=== PATIENT | female | born 1970 | race Caucasian/White ===

== ENCOUNTER 2017-04-13 08:28 | Outpatient (CLI) | payer MEDICAID ==
[2017-04-13 09:10] LABS: CHOL/HDL RATIO 4.1 (<4.4); CHOLESTEROL 210 mg/dL; HDL CHOLESTEROL 51 mg/dL; LDL/HDL RATIO 2.6 (<4.4); TRIGLYCERIDES 138 mg/dL; VLDL CHOLESTEROL 28 mg/dL
== END 2017-04-13 08:29 | disposition home or self-care (01) ==
LOC: LAB 08:28
PROVIDERS: ATTEND Family Medicine
DX: E78.2 Mixed hyperlipidemia (principal)
CPT/HCPCS: 36415; 80061

== ENCOUNTER 2017-04-20 09:03 | Outpatient (CLI) | payer MEDICAID ==
--- NOTE | 2017-04-21 17:54 | Mammography Report ---
DIGITAL SCREENING MAMMOGRAM: 04/20/2017 CLINICAL INDICATION: A 46-year-old for screening. COMPARISON: 10/2014, 08/2012, 04/2011, 04/2010. TECHNIQUE: Routine CC and MLO projections were obtained of the breasts. FINDINGS: Parenchymal tissue within both breasts is heterogeneously dense, which may lower the sensi tivity of mammography; however, there are no dominant masses, suspicious microcalcifications, or seco ndary signs of malignancy. In comparison to the previous studies, there are no significant changes. ASSESSMENT: NO MAMMOGRAPHIC EVIDENCE OF MALIGNANCY. NO SIGNIFICANT INTERVAL CHANGES. RECOMMENDATION: Screening mammography is recommended annually. BIRADS category 1 - negative. STANDARD QUALIFYING STATEMENTS 1. This examination was reviewed with the aid of Computed-Aided Detection (CAD). 2. A negative or benign imaging report should not delay biopsy if clinically suspicious findings are present. Consider surgical consultation if warranted. More than 5% of cancers are not identified b y imaging. 3. Dense breasts may obscure an underlying neoplasm. JOB #: [id number] EXT JOB #:[id number]
== END 2017-04-20 09:04 | disposition home or self-care (01) ==
LOC: DI 09:03
PROVIDERS: ATTEND Family Medicine
DX: Z12.31 Encounter for screening mammogram for malignant neoplasm of breast (principal)
CPT/HCPCS: 77067

== ENCOUNTER 2017-06-10 10:15 | Outpatient (CLI) | payer MEDICAID | END 2017-06-10 10:16 | disposition home or self-care (01) | LOC: SC 10:15 | PROVIDERS: ATTEND Nurse Practitioner Family | DX: G47.10 Hypersomnia, unspecified (principal); G47.8 Other sleep disorders; R06.83 Snoring; E66.9 Obesity, unspecified; Z68.37 Body mass index [BMI] 37.0-37.9, adult; G47.00 Insomnia, unspecified | CPT/HCPCS: 99205; 99212 ==

== ENCOUNTER 2017-11-19 19:41 | Outpatient (CLI) | payer MEDICAID | END 2017-11-19 19:42 | disposition home or self-care (01) | LOC: SC 19:41 | PROVIDERS: ATTEND Internal Medicine Pulmonary Disease | DX: G47.33 Obstructive sleep apnea (adult) (pediatric) (principal); G47.61 Periodic limb movement disorder | CPT/HCPCS: 95810 ==

== ENCOUNTER 2017-12-31 10:15 | Outpatient (CLI) | payer MEDICAID | END 2017-12-31 10:16 | disposition home or self-care (01) | LOC: SC 10:15 | PROVIDERS: ATTEND Nurse Practitioner Family | DX: G47.33 Obstructive sleep apnea (adult) (pediatric) (principal); G47.61 Periodic limb movement disorder | CPT/HCPCS: 99212; 99214 ==

== ENCOUNTER 2018-07-26 08:55 | Outpatient (CLI) | payer MEDICAID | END 2018-07-26 08:56 | disposition home or self-care (01) | LOC: SC 08:55 | PROVIDERS: ATTEND Nurse Practitioner Family | DX: G47.33 Obstructive sleep apnea (adult) (pediatric) (principal); G47.00 Insomnia, unspecified | CPT/HCPCS: 99212; 99214 ==

== ENCOUNTER 2018-08-30 08:59 | Outpatient (CLI) | payer MEDICAID | END 2018-08-30 09:00 | disposition home or self-care (01) | LOC: SC 08:59 | PROVIDERS: ATTEND Nurse Practitioner Family | DX: G47.33 Obstructive sleep apnea (adult) (pediatric) (principal); G47.00 Insomnia, unspecified | CPT/HCPCS: 99212; 99214 ==

== ENCOUNTER 2018-10-11 08:42 | Outpatient (CLI) | payer MEDICAID | END 2018-10-11 08:43 | disposition home or self-care (01) | LOC: SC 08:42 | PROVIDERS: ATTEND Nurse Practitioner Family | DX: G47.33 Obstructive sleep apnea (adult) (pediatric) (principal) | CPT/HCPCS: 99212; 99214 ==

== ENCOUNTER 2019-01-11 08:17 | Outpatient (CLI) | payer MEDICAID ==
[2019-01-11 09:40] VITALS: BP 110/80
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
== END 2019-01-11 08:18 | disposition home or self-care (01) ==
LOC: SC 08:17
PROVIDERS: ATTEND Nurse Practitioner Family
DX: G47.33 Obstructive sleep apnea (adult) (pediatric) (principal)
CPT/HCPCS: 99212; 99214

== ENCOUNTER 2019-10-20 10:43 | Outpatient (CLI) | payer MEDICAID ==
--- NOTE | 2019-10-20 09:32 | SLEEP CARE CONSULTATION ---
Information from patient questionnaire entered by Elle Singh. I have reviewed and concur with the information entered by Elle Singh. This document represents the service I personally performed and the decisions made by me, Oralia Buenrostro, RN, MSN, DISTRICT WIRE CHIEF. History of Present Illness Service Date and Time: 10/20/2019 0900 Previous diagnosis: Mild, Obstructive Sleep Apnea-Hypopnea Syndrome AHI: 11.1 (in 2018) Reason for follow up: other (9 month) Equipment type: CPAP Equipment obtained from: [facility] (getting supplies as needed) Mask style: Full face Mask brand: Resmed (Air Touch) Backup mask available: Yes (old mask ) Last cushion change: the for all equipment Prior sleep studies: Yes Year and Where: 2017 Sleep Type of Sleep Study: Polysomnography CPAP Compliance Data - Data Reviewed with Patient Average duration of nightly device use: 4 Compliance rate %: 30 (last 30)(22.2 for 180 days) Current pressure setting (cmH2O): 6-10 Humidity settin Heated hose settin Average residual AHI: 3.1 Average large leak: 2 min Subjective Missed days of use due to: reports: other (feeling of anxiety with use of mask after cervical fusion - discussed with surgeon and normal response - likes current mask ) Patient concerns: reports: mask discomfort (from anxiety as described above), mask leak noise (when sleep restless from pain and will then give up and take off mask ), other (wears a retainer for past 2 months with residual drool. ). denies: aerophagia, air blowing in eyes, condensation in mask/hose, nasal congestion, dry mouth, nose, throat, epistaxis Observed to snore while using device: No (single / sleeps alone) Current pressure setting perceived as: comfortable On therapy, patient: reports: being more awake and alert during the day, more rested overall (when able to use longer and more energy for exercise ). denies: sleeping better (reports insomnia - described as difficulty to return to sleep after awakened due to pain. She then turns on IPAD and watches. ), drowsiness while driving Initial [place] Sleepiness Scale score: 13 (in 2008)(14 in 2018) Allergies and Home Medications Home medication list reviewed: No (tapering off pain medications only every 18 hours and muscle relaxant prn ) Review of Systems Review of systems same as previous: No (cervical fusion 02/10 / lumbar fusion May 2019) Physical Exam Height: 5 ft 8 in Weight: 235 lb (home weight) Weight change since last visit: ? lost 10 pounds Body Mass Index: 35.7 BMI Classification: Obese Impression and Plan 1. Obstructive Sleep Apnea-Hypopnea Syndrome, mild, with poor treatment compliance and good apnea control. On CPAP therapy, the patient has better sleep quality and is more rested overall when able to use for longer periods of time. Her compliance fell due to anxiety with using mask after her cervical fusion. She has been more successful with nightly CPAP use the past week. To reduce skin irritation from drooling from use of retainer, she is advised to check out skin protective ointments / lotions that can be used with her mask. She has checked with [facility] and cloth barrier information given. So I advised to use both the barrier and skin protective ointment to allow healing of skin. To improve mask fit when restless sleep from pain, she is advised to try a hose yang as described to be found online. Patient counseled of risks of respiratory depression with use of her opioids and muscle relaxant and to use CPAP with all sleep. I also counseled her on risks of combining opioids and muscle relaxant of which she states aware. She is in process of tapering her medications wit her doctor. Patient's apnea severity and rationale for treatment to reduce apnea, improve sleep quality and reduce cardiovascular and cerebrovascular events was reviewed. 2. Insomnia , due to difficulty returning to sleep when awakened by pain. Her current practice of watching movies will only alert her more by effect of light into eyes and melatonin level as well as the activity itself so instead she is advised to leave bedroom and engage in quiet quiet activity such as reading until sleepy enough to return to bed. This is to be repeated as often as necessary so bed associated with sleep. A 2 week diary will be sent to complete to assist application and futher evaluation. * Continue auto CPAP pressure at 6-10 cmH2O * Implement methods to reduce skin irritation * Implement methods to reduce insomnia * complete 2 week sleep diary * Notify me if snoring with mask or feeling that the pressure is too much or too little * Attempt to lose weight * Call this office if any problems using CPAP * Return for follow up in 2 months , or sooner if concerns arise Visit Type: Telehealth Video (to reduce Covid 19 exposure risk) Video Type: Airware Patient Location: Home Location of Provider: Home Patient agrees and consents to this telehealth visit type: Yes Patient agrees to have their insurance billed: Yes Time Spent with Patient (minutes): 29 Provider Statement: I spent 100% of the Telehealth Video Call with the patient with greater than 50% spent counseling the patient and coordination of care.
== END 2019-10-20 10:44 | disposition home or self-care (01) ==
LOC: SC 10:43
PROVIDERS: ATTEND Nurse Practitioner Family
DX: G47.33 Obstructive sleep apnea (adult) (pediatric) (principal); G47.00 Insomnia, unspecified; E66.9 Obesity, unspecified; Z68.35 Body mass index [BMI] 35.0-35.9, adult

== ENCOUNTER 2019-11-09 15:06 | Outpatient (CLI) | payer MEDICAID ==
[2019-11-09 15:30] LABS: BASOPHILS # (AUTO) 0.1 10^3/uL (0.0-0.1); BASOPHILS % (AUTO) 0.8 %; EOSINOPHILS # (AUTO) 0.3 10^3/uL (0.0-0.7); EOSINOPHILS % (AUTO) 3.7 %; HGB - HEMOGLOBIN 13.5 g/dL (12.0-16.0); LYMPHOCYTES % (AUTO) 27.5 %; MEAN CORPUSCULAR HEMOGLOBIN 28.4 pg (27.0-31.0); MEAN CORPUSCULAR HGB CONC 32.6 g/dL (32.0-36.0); MONOCYTES # (AUTO) 0.4 10^3/uL (0.0-1.0); MONOCYTES % (AUTO) 4.8 %; NEUTROPHILS # (AUTO) 4.6 10^3/uL (1.5-6.6); NEUTROPHILS % (AUTO) 63.1 %; RED BLOOD COUNT 4.76 10^6/uL (4.20-5.40); RED CELL DISTRIBUTION WIDTH 13.7 % (12.0-15.0); WHITE BLOOD COUNT 7.3 x10^3/uL (4.8-10.8)
[2019-11-09 15:47] LABS: ALBUMIN 4.1 g/dL (3.2-5.5); ALBUMIN/GLOBULIN RATIO 1.3 (1.0-2.2); ALKALINE PHOSPHATASE 55 IU/L (42-121); ALT ALANINE AMINOTRANSFERASE 15 IU/L (10-60); AST ASPARTATE AMINOTRANSFERASE 18 IU/L (10-42); BILIRUBIN,TOTAL 0.3 mg/dL (0.2-1.0); BUN - BLOOD UREA NITROGEN 14 mg/dL (6-20); CALCIUM 9.6 mg/dL (8.5-10.3); CARBON DIOXIDE - CO2 23 mmol/L (21-32); CHLORIDE 104 mmol/L (101-111); CHOL/HDL RATIO 3.5 (<4.4); CHOLESTEROL 207 mg/dL; CREATININE 0.8 mg/dL (0.4-1.0); GLUCOSE 112 mg/dL (70-100); HDL CHOLESTEROL 59 mg/dL; LDL CHOLESTEROL,CALCULATED 120 mg/dL; SODIUM 135 mmol/L (135-145); TOTAL PROTEIN 7.2 g/dL (6.7-8.2); VLDL CHOLESTEROL 28 mg/dL
[2019-11-09 15:59] LABS: THYROID STIMULATING HORMONE 0.51 uIU/mL (0.34-5.60)
[2019-11-09 16:00] LABS: FREE T3 2.68 pg/mL (2.5-3.9)
[2019-11-09 16:13] LABS: PLATELET ESTIMATE, MANUAL NORMAL (130-450,000) (NORMAL); PLATELET MORPHOLOGY PLATELET CLUMPING (NORMAL); RBC MORPHOLOGY (MULTIPLE) NORMAL APPEARANCE (NORMAL)
== END 2019-11-09 15:07 | disposition home or self-care (01) ==
LOC: LAB 15:06
PROVIDERS: ATTEND Family Medicine
DX: E07.9 Disorder of thyroid, unspecified (principal); Z13.220 Encounter for screening for lipoid disorders; Z13.228 Encounter for screening for other metabolic disorders; R53.83 Other fatigue; E78.2 Mixed hyperlipidemia
CPT/HCPCS: 36415; 80053; 80061; 82306; 83721; 84439; 84443; 84481; 85025

== ENCOUNTER 2020-06-13 13:11 | Outpatient (CLI) | payer MEDICAID ==
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
== END 2020-06-13 13:12 | disposition home or self-care (01) ==
LOC: SC 13:11
PROVIDERS: ATTEND Nurse Practitioner Family
DX: G47.33 Obstructive sleep apnea (adult) (pediatric) (principal); E66.9 Obesity, unspecified; Z68.35 Body mass index [BMI] 35.0-35.9, adult

== ENCOUNTER 2020-08-13 14:59 | Outpatient (CLI) | payer MEDICAID ==
--- NOTE | 2020-08-14 09:27 | Mammography Report ---
BILATERAL DIGITAL SCREENING MAMMOGRAM 3D/2D: 08/13/2020 CLINICAL: Routine screening. Comparison is made to exams dated: 04/20/2017 mammogram, 11/02/2014 mammogram, 08/31/2012 mammogram, mammogram, and 05/10/2010 mammogram - [facility]. There are scattered fib roglandular elements in both breasts. No significant masses, calcifications, or other findings are seen in either breast. There has been no significant interval change. IMPRESSION: NEGATIVE There is no mammographic evidence of malignancy. A 1 year screening mammogram is recommended. This exam was interpreted at Station ID: [id number]. NOTE: For mammograms, a report in lay terms will be sent to the patient. Approximately 15% of breast malignancies will not be visualized mammographically. In the management of a palpable breast mass, a negative mammogram must not discourage biopsy of a clinically suspicious lesion. Electronically Signed By: Darrel Condon acr/penrad:08/13/2020 17:34:18 ACR BI-RADS Category 1: Negative 3341F PARENCHYMAL PATTERN: (A) - The breast(s) demonstrate(s) scattered fibroglandular densities. BI-RADS CATEGORY: (1) - 1 RECOMMENDATION: (ANNUAL) - Recommend routine annual screening mammography. [id number] 1 year screening LATERALITY: (B)
== END 2020-08-13 15:00 | disposition home or self-care (01) ==
LOC: DI.N 14:59
DX: Z12.31 Encounter for screening mammogram for malignant neoplasm of breast (principal)

== ENCOUNTER 2020-08-22 08:54 | Outpatient (CLI) | payer MEDICAID ==
--- NOTE | 2020-08-22 09:12 | SLEEP CARE CONSULTATION ---
Information from patient questionnaire entered by Elle Singh. I have reviewed and concur with the information entered by Elle Singh. This document represents the service I personally performed and the decisions made by , Yanci Hernández ARNP. History of Present Illness Service Date and Time: 08/22/2020 0854 Previous diagnosis: Mild, Obstructive Sleep Apnea-Hypopnea Syndrome AHI: 11.1 (in 2018) Reason for follow up: other (2 month) Equipment type: CPAP Equipment obtained from: [facility] (getting supplies as needed) Mask style: Full face Backup mask available: No (keep old mask as backup when replaced) Last cushion change: 1 month Prior sleep studies: Yes Year and Where: 2018 - [facility] Type of Sleep Study: Polysomnography HPI additional information: ZANDRA ERNANDEZ was diagnosed to have mild, AHI 11.1, obstructive sleep apnea- hypopnea syndrome and returned today for CPAP therapy two month follow-up. CPAP Compliance Data - Data Reviewed with Patient Average duration of nightly device use: 5 hr 30 min Compliance rate %: 81.7 (60 days) Current pressure setting (cmH2O): 6-10 Humidity settin Heated hose settin Average residual AHI: 2.9 Average large leak: 36 sec Subjective Patient concerns: denies: aerophagia, mask discomfort, air blowing in eyes, mask leak noise, condensation in mask/hose, nasal congestion, dry mouth, nose, throat, epistaxis, other Observed to snore while using device: No Current pressure setting perceived as: comfortable On therapy, patient: reports: sleeping better, awakening more refreshed, being more awake and alert during the day, more rested overall. denies: drowsiness while driving Initial [place] Sleepiness Scale score: 14 (in 2018) Current [place] Sleepiness Scale score: 2 Allergies and Home Medications Home medication list reviewed: Yes (no changes) Review of Systems Review of systems same as previous: Yes (no changes) Physical Exam Heart Rate: 95 O2 Saturation: 95 Height: 5 ft 8 in Weight: 237 lb Body Mass Index: 36.0 BMI Classification: Obese Impression and Plan 1. Obstructive Sleep Apnea-Hypopnea Syndrome, mild, with good treatment compliance and good apnea control. On CPAP therapy, the patient has better sleep quality and is more rested overall. She has been able to bring up her compliance and is using her machine more consistently with significant improvement of her apneas. I will have her follow up in a year. She was encouraged to come in sooner with any issues. She was encouraged to lose weight to improve her health. Patient's apnea severity and rationale for treatment to reduce apnea, improve sleep quality and reduce cardiovascular and cerebrovascular events was reviewed. I also reviewed the benefit of consistent device use of CPAP for dep ression/anxiety. * Continue autoCPAP pressure at 6-10 cmH2O * Notify me if snoring with mask or feeling that the pressure is too much or too little * Attempt to lose weight * Call this office if any problems using CPAP * Return for follow up in 1 year, or sooner if concerns arise Counseling Topics: Spare mask, Weight loss health impact Visit Type: In Office Time Spent with Patient (minutes): 14 Provider Statement: I spent 100% of the Face to Face Visit with the patient with greater than 50% spent counseling the patient and coordination of care.
--- OUTSIDE RECORDS SUMMARY | 2020-08-28 23:28 | EXTERNAL MEDICAL SUMMARY RPT | Continuity of Care Document ---
:1970 Demographics Phone Unavailable Preferred Language Turkish Marital Status Unknown Amish Affiliation Unknown Race Unknown Ethnic Group Unknown Author Organization [facility] Address [address] [phone] Phone Care Team Providers Name Role Phone Horras Unavailable Unavailable Horras Unavailable Unavailable Problems date description facility [id number] Chronic pain syndrome [facility] 20200712 Disorder of thyroid, unspecified [facility] [id number] Pain in right finger[facility]s) [facility] Medications date description facility 20200530 cetirizine hydrochloride 10 MG Oral Tab let [facility] 20200530 Oxycodone Hydrochloride 5 MG Oral Table t [facility] 20200530 Acyclovir 200 MG Oral [facility] 20200530 Methocarbamol [address] [facility] 20200530 Ethinyl Estradiol 0.035 MG / Norethindr one 1 MG Oral [facility] Tablet 20200530 Amphetamine aspartate 5 MG / Amphetamin e Sulfate 5 MG / [facility] Dextroamphetamine saccharate 5 MG / Dext roamphetamine Sulfate 5 MG Oral Tablet 20200530 12 HR Bupropion Hydrochloride 150 MG Ex tended Release [facility] Tablet [id number] Amphetamine aspartate 5 MG / Amphetamin e Sulfate 5 MG / [facility] Dextroamphetamine saccharate 5 MG / Dext roamphetamine Sulfate 5 MG Oral Tablet Procedures date description facility [id number] [facility] date description facility 20200530 [facility] date description facility 20200530 [facility] date description facility [id number] [facility] date description facility [id number] [facility] date description facility [id number] [facility] Vital Signs date measurement value source 20200530 BMI 33.7 kg/m2 20200530 BP_diastolic 72 mm[Hg] [id number] BP_systolic 138 mm[Hg] 20200530 heart_rate 87 /min 20200530 height_metric 177.8 cm 20200530 height_standard 70 in 20200530 respiration_rate 16 /min 20200530 temperature_metric 36.33 C 20200530 temperature_standard 97.4 F 20200530 weight_metric 48.45 kg 20200530 weight_standard 106.82 lb date measurement value source 20200712 BMI 33.4 kg/m2 20200712 BP_diastolic 68 mm[Hg] [id number] BP_systolic 130 mm[Hg] 20200712 heart_rate 100 /min 20200712 height_metric 177.8 cm 20200712 height_standard 70 in 20200712 respiration_rate 16 /min 20200712 temperature_metric 36.78 C 20200712 temperature_standard 98.2 F 20200712 weight_metric 47.94 kg 20200712 weight_standard 105.69 lb Social History date description facility [id number]
== END 2020-08-22 08:55 | disposition home or self-care (01) ==
LOC: SC 08:54
PROVIDERS: ATTEND Nurse Practitioner Family
DX: G47.33 Obstructive sleep apnea (adult) (pediatric) (principal); E66.9 Obesity, unspecified; Z68.36 Body mass index [BMI] 36.0-36.9, adult
CPT/HCPCS: 99212

== ENCOUNTER 2021-08-06 09:18 | Outpatient (CLI) | payer MEDICAID ==
[2021-08-06 09:53] VITALS: BP 128/78
--- NOTE | 2021-08-06 09:53 | SLEEP CARE CONSULTATION ---
Information from patient questionnaire entered by Miesha Cruz MA. I have reviewed and concur with the information entered by Miesha Cruz MA. This document represents the service I personally performed and the decisions made by , Yanci Hernández ARNP. History of Present Illness Service Date and Time: 08/06/2021 0918 Previous diagnosis: Mild, Obstructive Sleep Apnea-Hypopnea Syndrome AHI: 11.1 (in 2018) Reason for follow up: annual, other (LAST SEEN 07/2020, TRANSFER DME, RECALL MACHINE,) Equipment type: CPAP Equipment obtained from: Other ([facility]) Mask style: Full face Backup mask available: Yes (old mask) Last cushion change: 1 month Prior sleep studies: Yes Year and Where: 2017 - [facility] Type of Sleep Study: Polysomnography HPI additional information: ZANDRA ERNANDEZ was diagnosed to have mild, AHI 11.1, obstructive sleep apnea- hypopnea syndrome and returned today for CPAP therapy annual follow-up. Sleep Study - Results Type of Sleep Study: Polysomnography Prior sleep studies: Yes Year and Where: 2018 - [facility] CPAP Compliance Data - Data Reviewed with Patient Average duration of nightly device use: 5 HOURS 33 MINUTES Compliance rate %: 42.2 Current pressure setting (cmH2O): 6-10 Humidity settin Heated hose settin Average residual AHI: 2.4 Average large leak: 27 SECONDS Compliance data discussion: She stopped using her CPAP for a couple months due to the recall and recomm endation by Gareth. She restarted about 1.5 months ago upon advice from her doctor saying the risks of not using outweighing risks of using the CPAP. She also has had a sinus infection for about 4 months for which she is following up with an ENT specialist. Subjective Missed days of use due to: reports: illness (NASAL INFECTION SINCE MAR, ENT ), other (RECALL, REGIST RETURNED IN MARCH,) Patient concerns: denies: aerophagia, mask discomfort, air blowing in eyes, mask leak noise, condensation in mask/hose, nasal congestion, dry mouth, nose, throat, epistaxis, other Observed to snore while using device: No Current pressure setting perceived as: comfortable On therapy, patient: reports: sleeping better, awakening more refreshed, being more awake and alert during the day, more rested overall. denies: drowsiness while driving Initial [place] Sleepiness Scale score: 14 (in 2018) Current [place] Sleepiness Scale score: 9 (2021) Allergies and Home Medications Home medication list reviewed: Yes (no changes) Allergy and home medication list: Allergies No Known Drug Allergies Allergy (Verified 05/14/14 02:44) Review of Systems Review of systems same as previous: Yes (no changes) Physical Exam Vital signs obtained and entered by: Carly Cruz CMA [facility] Blood Pressure: 128/78 (RIGHT, PULSE 82, RESP 18, ) Cuff size: wrist Heart Rate: 85 O2 Saturation: 95 (PAPER MASK) Height: 5 ft 10 in Weight: 222 lb (WITH CLOTHES) Body Mass Index: 31.8 BMI Classification: Obese Impression and Plan 1. Obstructive Sleep Apnea-Hypopnea Syndrome, mild, with poor treatment compliance and good apnea control. On CPAP therapy, the patient has better sleep quality and is more rested overall. Patient has a [employer] CPAP machine. Patient has already registered their device for the recall. Patient denies any black particles seen in machine or hoses, any unusual odors coming from device. Patient has not experienced any physical symptoms such as upper airway irritation, headache, skin or eye irritation, asthma, nausea/vomiting, dif ficulty breathing or chest pain. If patient is not able to sleep due to waking up choking, gasping for air or other respiratory distress that they may decide to continue using it until it is either replaced or repaired. Patient is not eligible for new device until next year. She states she will continue to use her device and monitor for any debris in her device. Patient voiced understanding and agreement with plan. Patient's apnea severity and rationale for treatment to reduce apnea, improve sleep quality and reduce cardiovascular and cerebrovascular events was reviewed. I also reviewed the benefit of consistent device use of CPAP for depression/anxiety. She was encouraged to try to lose weight to improve her overall health and to reduce apneas. * Continue auto CPAP pressure at 6-10 cmH2O * Update supplies as needed, updated prescription to be faxed to DME * Notify me if snoring with mask or feeling that the pressure is too much or too little * Attempt to lose weight * Call this office if any problems using CPAP * Return for follow up in 1 year, or sooner if concerns arise Counseling Topics: Spare mask, Weight loss health impact Visit Type: In Office Time Spent with Patient (minutes): 22 Provider Statement: I spent 100% of the Face to Face Visit with the patient with greater than 50% spent counseling the patient and coordination of care.
== END 2021-08-06 09:19 | disposition home or self-care (01) ==
LOC: SC 09:18
PROVIDERS: ATTEND Nurse Practitioner Family
DX: G47.33 Obstructive sleep apnea (adult) (pediatric) (principal); E66.9 Obesity, unspecified; Z68.31 Body mass index [BMI] 31.0-31.9, adult
CPT/HCPCS: 99212; 99213

== ENCOUNTER 2022-01-22 11:02 | Day surgery (SDC) | payer MEDICAID ==
[~2022-01-22 11:02] MED LIST: ACETAMINOPHEN 500 MG TABLET PO ONE; CEFAZOLIN 2G/50ML 0.9% NS 2 GM/50 ML BAG IV ONE; CELECOXIB 100 MG CAPSULE PO ONE; GABAPENTIN 400 MG CAPSULE ONE
[2022-01-22 11:24] LABS: HCG UR QUAL NEGATIVE
[2022-01-22] MEDS ORDERED: LACTATED RINGERS 1,000 ML IV ONE ×2 (11:33→14:32)
--- NOTE | 2022-01-22 12:02 | ANESTHESIA ---
Pre-Anesthesia VS, & Labs - Diagnosis displaced fracture right distal fibula - Procedure orif right distal fibular fracture Vital Signs: Temp Pulse Resp BP Pulse Ox 36.9 C 77 16 129/75 96 01/22/22 11:33 01/22/22 11:33 01/22/22 11:33 01/22/22 11:33 01/22/22 11:33 Height: 5 ft 10 in Weight (kg): 111.13 kg Body Mass Index: 35.2 BMI Classification: Obese - NPO >8 hours - Is Patient ?: No Home Medications and Allergies Home Medications: Ambulatory Orders Omeprazole 40 mg PO DAILY 01/22/22 buPROPion [Wellbutrin Sr] 150 mg PO DAILY 01/22/22 methocarbamoL [Robaxin] 500 mg PO Q6H 01/22/22 Oxycodone HCl 5 mg PO Q4HR 05/14/14 Omeprazole 40 mg PO DAILY 01/22/22 buPROPion [Wellbutrin Sr] 150 mg PO DAILY 01/22/22 methocarbamoL [Robaxin] 500 mg PO Q6H 01/22/22 cetrizine Allergies/Adverse Reactions: Allergies Allergy/AdvReac Type Severity Reaction Status Date / Time No Known Drug Allergies Allergy Verified 01/17/22 10:24 Anes History & Medical History - Anesthetic History Anesthesia Complications: reports: No previous complications - Medical History Cardiovascular: reports: None Pulmonary: reports: Sleep apnea, CPAP use, Other (covid infection 1 week ago. Recent bronchitis) Gastrointestinal: reports: GERD (controlled with medication), Hepatitis (Hep C/ post treatment) Urinary: reports: None Neuro: reports: None Musculoskeletal: reports: Osteoarthritis, Chronic back pain Endocrine/Autoimmune: reports: None Blood Disorders: reports: None Skin: reports: None Smoking Status: Former smoker (quit 5 years ago) Psychosocial: reports: Depression, Anxiety, Cannabis (daily), Opioid, Other (PTSD) History of Cancer?: No - Surgical History Orthopedic: reports: Spine surgery Exam General: Alert, Oriented x3, Cooperative, No acute distress Dental: WNL Mouth Openin Fingerbreadth Neck Mobility: Normal Mallampati classification: II Thyromental Distance: 4-6 cm Respiratory: Lungs clear, Normal breath sounds, No respiratory distress, No acc essory muscle use Cardiovascular: Regular rate, Normal S1, Normal S2, No murmurs Mental/Cognitive Status: Alert/Oriented X3, Normal for patient Plan Anesthesia Type: General, Popliteal Block (right) Regional Block: Per Surgeon's request for Post Op pain control Consent for Procedure(s) Verified and Reviewed: Yes Code Status: Attempt Resuscitation ASA classification: 3-Severe systemic disease Is this case an emergency?: No
[2022-01-22] MEDS ORDERED: ONDANSETRON 4 MG/2 ML VIAL IVP PRN (12:09)
[2022-01-22] MEDS ORDERED: NALOXONE 0.4 MG/ML VIAL IVP PRN (12:09)
[2022-01-22] MEDS ORDERED: ATROPINE ABBOJECT 1 MG/10 ML SYRINGE IVP PRN (12:09)
[2022-01-22] MEDS ORDERED: MORPHINE 2 MG/ML CARPUJECT IVP PRN (12:09)
[2022-01-22] MEDS ORDERED: fentaNYL 100 MCG/2 ML VIAL IVP PRN (12:09)
[2022-01-22] MEDS ORDERED: BACITRACIN ZINC OINT 1 PACKET TOP ONE (12:18)
[2022-01-22] MEDS ORDERED: BUPIVACAINE 0.5% PF 30 ML VIAL ONE (12:18)
[2022-01-22] MEDS ORDERED: LIDOCAINE MPF 2%-EPI 1:200000 20 ML VIAL ONE (12:18)
[2022-01-22] MEDS ORDERED: PROPOFOL 200 MG/20 ML VIAL IVP ONE (12:26)
[2022-01-22] MEDS ORDERED: MIDAZOLAM 2 MG/2 ML VIAL ONE (12:26)
[2022-01-22] MEDS ORDERED: LIDOCAINE-MPF 2% 5 ML VIAL ONE (12:26)
[2022-01-22] MEDS ORDERED: ROPIVACAINE 0.5% PF 30 ML VIAL ONE (12:31)
[2022-01-22] MEDS ORDERED: LACTATED RINGERS 1,000 ML IV SCH (13:00)
[2022-01-22] MEDS ORDERED: ONDANSETRON 4 MG/2 ML VIAL ONE (13:06)
[2022-01-22] MEDS ORDERED: DEXAMETHASONE 4 MG/ML VIAL ONE (13:06)
[2022-01-22] MEDS ORDERED: BUPIVACAINE 0.5%-EPI 1:200000 PF 30 ML VIAL SUBQ ONE (13:15)
[2022-01-22] MEDS ORDERED: LIDOCAINE 2%-EPI 1:100000 20 ML MDV SUBQ ONE (13:16)
--- NOTE | 2022-01-22 14:14 | OPERATIVE REPORT ---
Operative Report - General Planned Procedure: Open reduction internal fixation lateral malleolus right ankle Pre-Op Diagnosis: Displaced fracture lateral malleolus right ankle Procedure Performed: Open reduction internal fixation lateral malleolus right ankle with Arthrex fibula lock kelsey: 3 mm x 130 mm, 3 distal locking screws Post Op Diagnosis: Same as preoperative diagnosis - Procedure Note Primary Surgeon: Conner Appiah MD Secondary Surgeon: Steve Lee Anesthesia Technique: General ET tube, General mask, Regional block Estimated Blood Loss (mL): 5 Indications: This is a 51-year-old woman with fall and localized injury to right ankle. She had localized pain lateral aspect of the right ankle with swelling. She has had previous distal fibular fracture with plate fixation in 2015 and removal of plate had a second procedure. Her exam showed localized tenderness and swelling to right ankle, skin intact, neurovascular intact. X-ray showed a displaced fracture of the lateral malleolus at and just above the joint line with a widened medial clear space on the mortise view of the right ankle. This suggested a bimalleolar equivalent fracture of the right ankle. The patient was in agreement to surgical stabilization of her right ankle, signed informed consent in our office. - Other Other Information/Narrative: The patient was given a popliteal block prior to surgery in the holding area. The patient was brought to the operating room, placed in the supine position. After general endotracheal anesthesia was achieved, a foam ramp was placed beneath the right leg and a bump was placed beneath the right buttock to int ernally rotate the right leg. The right leg and lower extremity were prepped and draped in sterile manner in the usual fashion. Before meals arm image intensifier was utilized and was covered with sterile drape. A timeout procedure was performed by the entire operating room team and all were in agreement. A tourniquet was not utilized during the procedure. The Arthrex fibula lock fracture system was utilized. A 1.5 cm incision was made just inferior to the lateral malleolus by about a centimeter. The ankle was placed on a sterile bump and inversion was applied to the ankle. A drill guide was used to engage the tip of the lateral malleolus in the malleolar fossa. A guidepin was inserted at the tip of the lateral malleolus and guided with C arm image intensifier through the medullary canal. The fracture aligned well. The guidepin was drilled initially with the 6.2 mm reamer, then the 3.2 mm reamer. The 3.0 mm x 130 mm fibula lock kelsey was placed on the guide. The kelsey was impacted by hand into the medullary canal of the fibula. There was good reduction of the fracture. The tip of the kelsey distally was countersunk. The proximal tines were deployed to engage the proximal cortex within the medullary canal. Locking screws were inserted distally through stab incisions, 2 were placed horizontally and 1 was placed vertically. The syndesmosis appeared stable. The ankle mortise anatomic relationships were reestablished with a normal medial clear space and good alignment of the lateral malleolar fracture. The wounds were irrigated. The incisions were closed with interrupted 3-0 nylon. Xeroform, sterile gauze, cast padding and a short leg padded posterior fiberglass splint was applied with the ankle close to neutral dorsiflexion. The patient tolerated the procedure well. A physician escrow assistant was medically necessary to help with prepping and draping, positioning, protection of vital structures, assistance during the procedure including wound closure, dressing and/or splinting.
[2022-01-22] MEDS ORDERED: oxyCODONE 5 MG TABLET PO PRN (14:30)
[2022-01-22] MEDS: HYDROmorphone 0.5 MG/0.5 ML SYRINGE IVP PRN ×2 (14:35→14:50)
[2022-01-22] MEDS ORDERED: HYDROmorphone 1 MG/ML CARPUJECT ONE (14:48)
[2022-01-22] MEDS ORDERED: ONDANSETRON 4 MG/2 ML VIAL IVP SCH (15:00)
--- NOTE | 2022-01-22 15:06 | XRAY Report ---
PROCEDURE: OR C-Arm Procedure INDICATIONS: orif right fibula TECHNIQUE: 2 intraoperative fluoroscopic images of right ankle. COMPARISON: Ankle radiograph dated 01/17/2022.. FINDINGS: Intraoperative fluoroscopic images shows internal fixation of distal fibular shaft. Total fluoroscopy time is 44 seconds. IMPRESSION: Fluoroscopy guidance was provided intraoperatively for ORIF of right distal fibula. Reviewed by: Thierno Swenson MD on 01/22/2022 3:05 PM PDT Approved by: Thierno Swenson MD on 01/22/2022 3:05 PM PDT Station ID: [id number]
[2022-01-22] MEDS ORDERED: fentaNYL 100 MCG/2 ML VIAL ONE (15:15)
[2022-01-22] MEDS ORDERED: KETAMINE 500 MG/10 ML VIAL ONE (15:25)
[2022-01-22] MEDS ORDERED: SODIUM CHLORIDE 0.9% 10 ML VIAL IVP ONE (15:26)
[2022-01-22] MEDS ORDERED: KETOROLAC 15 MG/ML VIAL IVP SCH (16:00)
[2022-01-22] MEDS ORDERED: oxyCODONE 5 MG TABLET ONE (16:01)
[2022-01-22 16:42] VITALS: BP 114/56
--- NOTE | 2022-01-22 20:44 | ANESTHESIA POST OP EVALUATION ---
Anesthesia Post Eval - Post Anesthesia Eval Vitals: Last Vital Signs Temp 37.4 C 01/22/22 16:20 Pulse 76 01/22/22 16:20 Resp 15 01/22/22 16:20 BP 114/56 L 01/22/22 16:20 Pulse Ox 95 01/22/22 16:20 CV Function Including HR & BP: Stable Pain Control: Satisfactory Nausea & Vomiting: Negative Mental Status: Baseline Respiratory Status: Airway Patent Hydration Status: Satisfactory Anesthesia Complications: None
== END 2022-01-22 11:03 | disposition home or self-care (01) ==
LOC: SDS 11:02
PROVIDERS: ATTEND Orthopaedic Surgery
DX: S82.61XA Displaced fracture of lateral malleolus of right fibula, initial encounter for closed fracture (principal); W01.0XXA Fall on same level from slipping, tripping and stumbling without subsequent striking against object, initial encounter; Y92.008 Other place in unspecified non-institutional (private) residence as the place of occurrence of the external cause; E66.9 Obesity, unspecified; G47.30 Sleep apnea, unspecified; Z32.02 Encounter for pregnancy test, result negative; Z87.891 Personal history of nicotine dependence
CPT/HCPCS: 81025

== ENCOUNTER 2022-03-13 08:00 | Outpatient (CLI) | payer MEDICAID ==
--- NOTE | 2022-03-13 13:29 | XRAY Report ---
PROCEDURE: Ankle 3 View RT INDICATIONS: RIGHT ANKLE FRACTURE TECHNIQUE: 3 views of the ankle were acquired. COMPARISON: 01/17/2022 FINDINGS: Bones: Healing oblique distal fibular fracture supported by intramedullary kelsey and fixation screws in good position. Ankle mortise is maintained. Soft tissues: No tibiotalar joint effusion. Achilles tendon appears normal. IMPRESSION: Healing internally stabilized distal fibular fracture Reviewed by: Gage Cortes MD on 03/13/2022 12:28 PM CHRIS Approved by: Gage Cortes MD on 03/13/2022 12:28 PM AKDT Station ID: [id number]
== END 2022-03-13 23:59 | disposition home or self-care (01) ==
LOC: DI.WOS 08:00
PROVIDERS: ATTEND Orthopaedic Surgery
DX: S82.61XD Displaced fracture of lateral malleolus of right fibula, subsequent encounter for closed fracture with routine healing (principal)

== ENCOUNTER 2022-04-24 09:30 | Outpatient (CLI) | payer MEDICAID ==
--- NOTE | 2022-04-24 14:04 | XRAY Report ---
PROCEDURE: Ankle 3 View RT INDICATIONS: RIGHT ANKLE FRACTURE TECHNIQUE: 3 views of the ankle were acquired. COMPARISON: 3 views of the ankle dated 03/13/2022 FINDINGS: Bones: Intramedullary nail is redemonstrated within the distal fibula. No hardware fracture or loosen ing. There is continued bony remodeling of the fibular fracture. Bones are in unchanged anatomic alig nment. Soft tissues: No tibiotalar joint effusion. Achilles tendon appears normal. IMPRESSION: Stable postoperative change. Reviewed by: Estrella Baker MD on 04/24/2022 2:03 PM PST Approved by: Estrella Baker MD on 04/24/2022 2:03 PM PST Station ID: [id number]
== END 2022-04-24 23:59 | disposition home or self-care (01) ==
LOC: DI.WOS 09:30
PROVIDERS: ATTEND Orthopaedic Surgery
DX: S82.61XA Displaced fracture of lateral malleolus of right fibula, initial encounter for closed fracture (principal)

== ENCOUNTER 2022-08-15 11:33 | Outpatient (CLI) | payer MEDICAID ==
[2022-08-15 12:07] VITALS: BP 124/76
--- NOTE | 2022-08-15 12:07 | SLEEP CARE CONSULTATION ---
Information from patient questionnaire entered by Ryan Obregon. I have reviewed and concur with the information entered by Ryan Obregon. This document represents the service I personally performed and the decisions made by me, Yanci Hernández ARNP. History of Present Illness Service Date and Time: 08/15/2022 1133 Previous diagnosis: Mild, Obstructive Sleep Apnea-Hypopnea Syndrome AHI: 11.1 (in 2018) Reason for follow up: annual (LAST SEEN 07/2021) Equipment type: CPAP (LEDEZMA Dreamstation 2) Equipment obtained from: Other ([facility]; hard to get ahold of them, not getting supplies) Mask style: Full face Mask brand: Resmed (AirTouch F20) Backup mask available: No (will keep old mask when replaced) Last cushion change: while Prior sleep studies: Yes Year and Where: 2017 - [facility] Type of Sleep Study: Polysomnography HPI additional information: ZANDRA ERNANDEZ was diagnosed to have mild, AHI 11.1, obstructive sleep apnea- hypopnea syndrome and returned today for CPAP therapy annual follow-up. Sleep Study - Results Type of Sleep Study: Polysomnography Prior sleep studies: Yes Year and Where: 2017 - [facility] CPAP Compliance Data - Data Reviewed with Patient Average duration of nightly device use: 6 HRS 30 MIN 2SEC Compliance rate %: 88.9 (02/15/22-08/13/22; 160 /180 days used) Current pressure setting (cmH2O): 6-10 Average residual AHI: 3.2 Central apnea: 0.2 Obstructive apnea: 0.6 Hypopnea: 2.4 Subjective Missed days of use due to: reports: other (electricity out) Patient concerns: denies: aerophagia, mask discomfort, air blowing in eyes, mask leak noise, condensation in mask/hose, nasal congestion, dry mouth, nose, throat, epistaxis Observed to snore while using device: No Current pressure setting perceived as: comfortable On therapy, patient: reports: sleeping better, awakening more refreshed, being more awake and alert during the day, more rested overall. denies: drowsiness while driving Initial [place] Sleepiness Scale score: 14 (in 2018) Current [place] Sleepiness Scale score: 10 (08/15/22) Allergies and Home Medications Known drug allergies: No Drug allergies reviewed: Yes Home medication list reviewed: Yes (no changes) Allergy and home medication list: Allergies No Known Drug Allergies Allergy (Verified 08/14/22 14:05) Review of Systems Review of systems same as previous: Yes (no changes) Physical Exam Vital signs obtained and entered by: RYAN Brewer MA Blood Pressure: 124/76 (LEFT ARM) Cuff size: long Heart Rate: 81 O2 Saturation: 98 Height: 5 ft 10 in Weight: 246 lb Weight change since last visit: 24 lb gain, now trying to lose from 260, lost 14 lbs loss Body Mass Index: 35.3 BMI Classification: Obese Impression and Plan 1. Obstructive Sleep Apnea-Hypopnea Syndrome, mild, with good treatment complian ce and good apnea control. On CPAP therapy, the patient has better sleep quality and is more rested overall. Patient is not satisfied with her DME, [facility]. She states she cannot get ahold of them and it is hard to get supplies once she orders them. She does not want to switch right now, but will call if she should decide to change her DME. Patient denies problems with oral dryness, nasal congestion, epistaxis, skin irritation or aerophagia. Patient's apnea severity and rationale for treatment to reduce apnea, improve sleep quality and reduce cardiovascular and cerebrovascular events was reviewed. I also reviewed the benefit of consistent device use of CPAP for depression/anxiety. 2. Obesity, unspecified. Currently patients BMI is 35.3. Patient gained weight up to 260 pounds and she is currently losing weight. She has lost 14 pounds since she started actively trying to lose weight. Obesity increases the risk of apnea, CPAP pressure requirements and overall health risks especially cardiovascular and diabetes. Thus patient is advised to continue to try to lose weight. * Continue auto CPAP pressure at 6-10 cmH2O * Update supplies * Notify me if snoring with mask or feeling that the pressure is too much or too little * Attempt to lose weight * Call this office if any problems using CPAP * Return for follow up in 1 year, or sooner if concerns arise Counseling Topics: Spare mask, Weight loss health impact Visit Type: In Office Time Spent with Patient (minutes): 20 Provider Statement: I spent 100% of the Face to Face Visit with the patient with greater than 50% spent counseling the patient and coordination of care.
== END 2022-08-15 11:34 | disposition home or self-care (01) ==
LOC: SC 11:33
PROVIDERS: ATTEND Nurse Practitioner Family
DX: G47.33 Obstructive sleep apnea (adult) (pediatric) (principal); E66.9 Obesity, unspecified; Z68.35 Body mass index [BMI] 35.0-35.9, adult
CPT/HCPCS: 99212; 99213

== ENCOUNTER 2023-09-03 10:09 | Outpatient (CLI) | payer MEDICARE, MEDICAID ==
--- NOTE | 2023-09-03 10:49 | Sleep Patient Instructions ---
Sleep Center Visit Summary - Patient Visit Information Reason for Visit: Annual follow-up - Patient Instructions Additional Instructions: You will continue with CPAP therapy with pressure set at 6-10 cmH2O. A supply prescription will be updated with your DME. I have added an order to update your PAP machine. Please call the office to schedule a compliance follow up once you get your new device. We encourage you to continue to try to lose weight. Please follow up with the sleep care office one month after obtaining new device. - Clinic Information Contact: [facility] [address] [place] [address] [email or web address] T: [phone]
--- NOTE | 2023-09-03 10:53 | SLEEP CARE CONSULTATION ---
Information from patient questionnaire entered by Ryan Obregon. I have reviewed and concur with the information entered by Ryan Obregon. This document represents the service I personally performed and the decisions made by me, Yanci Hernández ARNP. History of Present Illness Service Date and Time: 09/03/2023 1009 Previous diagnosis: Mild, Obstructive Sleep Apnea-Hypopnea Syndrome AHI: 11.1 (in 2018) Reason for follow up: annual (LAST SEEN 07/2022) Equipment type: CPAP (LEDEZMA Dreamstation 2) Equipment obtained from: Other ([facility]) Mask style: Full face Mask brand: Resmed (AirTouch F20) Backup mask available: Yes Last cushion change: 2 days Prior sleep studies: Yes Year and Where: 2017 - [facility] Type of Sleep Study: Polysomnography HPI additional information: ZANDRA ERNANDEZ was diagnosed to have mild, AHI 11.1, obstructive sleep apnea- hypopnea syndrome and returned today for CPAP therapy annual follow-up. Sleep Study - Results Type of Sleep Study: Polysomnography Prior sleep studies: Yes Year and Where: 2018 - [facility] CPAP Compliance Data - Data Reviewed with Patient Average duration of nightly device use: 5 HRS 42 MINS 23 SECS Compliance rate %: 51.5 (09/01/22-08/31/23; 226/365 days used) Current pressure setting (cmH2O): 6-10 Average residual AHI: 2.6 Central apnea: 0.2 Obstructive apnea: 0.6 Average large leak: 41 secs Compliance data discussion: She says if she takes a deep breath there is a "hiccup" in the pressure which she does not like. Subjective Missed days of use due to: reports: other (2 days a week in place without electricity) Patient concerns: reports: other (machine not working properly when taking deep breaths; she hates using new machine). denies: aerophagia, mask discomfort, air blowing in eyes, mask leak noise, condensation in mask/hose, nasal congestion, dry mouth, nose, throat, epistaxis Observed to snore while using device: No Current pressure setting perceived as: comfortable On therapy, patient: reports: sleeping better, awakening more refreshed, being more awake and alert during the day, more rested overall. denies: drowsiness while driving Initial [place] Sleepiness Scale score: 14 (in 2018) Current [place] Sleepiness Scale score: 6 (09/03/23) Allergies and Home Medications Known drug allergies: No Drug allergies reviewed: Yes Home medication list reviewed: Yes (no changes) Allergy and home medication list: Allergies No Known Drug Allergies Allergy (Verified 09/01/23 10:07) Review of Systems Review of systems same as previous: Yes (NO CHANGE) Physical Exam Vital signs obtained and entered by: RYAN Brewer MA Blood Pressure: 149/82 (LEFT ARM) Cuff size: long Heart Rate: 96 O2 Saturation: 97 Height: 5 ft 10 in Weight: 236 lb 3.2 oz Weight change since last visit: 10 lbs loss Body Mass Index: 33.9 BMI Classification: Obese Impression and Plan 1. Obstructive Sleep Apnea-Hypopnea Syndrome, mild, with fair treatment compliance and good apnea control. On CPAP therapy, the patient has better sleep quality and is more rested overall. She received her last machine in 2018. Thus, the CPAP will be updated. A DWO prescription will be made. Compliance guidelines for new device and follow up discussed. Patient's apnea severity and rationale for treatment to reduce apnea, improve sleep quality and reduce cardiovascular and cerebrovascular events was reviewed. I also reviewed the benefit of consistent device use of CPAP for depression/anxiety. 2. Obesity, unspecified. Currently patients BMI is 33.9. Obesity increases the risk of apnea, CPAP pressure requirements and overall health risks especially cardiovascular and diabetes. Thus patient is advised to continue to try to lose weight. * Continue auto CPAP pressure at 6-10 cmH2O * Update machine * Update supply prescription * Notify me if snoring with mask or feeling that the pressure is too much or too little * Attempt to lose weight * Call this office if any problems using CPAP * Return for follow up one month after obtaining new device, or sooner if concerns arise Counseling Topics: Spare mask, Weight loss health impact Prescriptions: Auto CPAP, Device supplies Visit Type: In Office Time Spent with Patient (minutes): 20 Provider Statement: I spent 100% of the Face to Face Visit with the patient with greater than 50% spent counseling the patient and coordination of care.
[2023-09-03 11:01] VITALS: BP 149/82; O2SAT 97
== END 2023-09-03 10:10 | disposition home or self-care (01) ==
LOC: SC 10:09
PROVIDERS: ATTEND Nurse Practitioner Family
DX: G47.33 Obstructive sleep apnea (adult) (pediatric) (principal); E66.9 Obesity, unspecified; Z68.33 Body mass index [BMI] 33.0-33.9, adult
CPT/HCPCS: 99213; G0463; 99212

== ENCOUNTER 2023-09-22 13:15 | Outpatient (CLI) | payer MEDICARE, MEDICAID ==
--- NOTE | 2023-09-23 09:38 | Mammography Report ---
BILATERAL DIGITAL SCREENING MAMMOGRAM 3D/2D: 09/22/2023 CLINICAL: Routine screening. Comparison is made to exams dated: 08/13/2020 mammogram, 04/20/2017 mammogram, and 11/02/2014 mammogra m - [facility]. Both breasts are heterogeneously dense, which may obscure small masses (category c / 51-75% glandular tissue). No significant masses, calcifications, or other findings are seen in either breast. There has been no significant interval change. IMPRESSION: NEGATIVE There is no mammographic evidence of malignancy. A 1 year screening mammogram is recommended. Based on the Tyrer Cuzick model (a risk assessment model) the patient's lifetime risk is 18.0% and he r 10 year risk is 5.4%. According to the ACR, ACS, and NCCN guidelines, an annual breast MRI exam vianney ng with mammogram is recommended if the patient's lifetime risk is 20% or greater. This exam was interpreted at Station ID: [id number]. NOTE: For mammograms, a report in lay terms will be sent to the patient. Approximately 15% of breast malignancies will not be visualized mammographically. In the management of a palpable breast mass, a negative mammogram must not discourage biopsy of a clinically suspicious lesion. Electronically Signed By: Vito larios/clarissa:09/22/2023 14:30:36 letter sent: No_Letter ACR BI-RADS Category 1: Negative 3341F PARENCHYMAL PATTERN: (D) - The breast(s) demonstrate(s) heterogeneously dense fibroglandular danny robert. BI-RADS CATEGORY: (1) - 1 RECOMMENDATION: (ANNUAL) - Recommend routine annual screening mammography. [id number] 1 year screening LATERALITY: (B)
== END 2023-09-22 13:16 | disposition home or self-care (01) ==
LOC: DI 13:15
PROVIDERS: ATTEND Family Medicine
DX: Z12.31 Encounter for screening mammogram for malignant neoplasm of breast (principal); R92.333 Mammographic heterogeneous density, bilateral breasts

== ENCOUNTER 2023-12-29 08:58 | Outpatient (CLI) | payer MEDICARE, MEDICAID ==
--- NOTE | 2023-12-29 09:25 | Sleep Patient Instructions ---
Sleep Center Visit Summary - Patient Visit Information Reason for Visit: First compliance visit for new device - Patient Instructions Additional Instructions: You were here for follow up of compliance with new CPAP. You will be continued on CPAP therapy with pressure at 6-10 cmH2O. You should follow up with sleep care in 12 months. You may contact us sooner for any questions or concerns. - Clinic Information Contact: [facility] [address] [place] [id number] [email or web address] T: [phone]
--- NOTE | 2023-12-29 09:28 | SLEEP CARE CONSULTATION ---
Information from patient questionnaire entered by Ryan Obregon. I have reviewed and concur with the information entered by Ryan Obregon. This document represents the service I personally performed and the decisions made by me, Yanci Hernández ARNP. History of Present Illness Service Date and Time: 12/29/2023 0858 Previous diagnosis: Mild, Obstructive Sleep Apnea-Hypopnea Syndrome AHI: 11.1 (in 2017) Reason for follow up: first compliance Equipment type: CPAP (RESMED Airsense 11 S/U 09/11/2023) Equipment obtained from: Other ([facility]; getting supplies) Mask style: Full face Mask brand: Resmed ([id number]?) Backup mask available: Yes Last cushion change: today Prior sleep studies: Yes Year and Where: 2017 - [facility] Type of Sleep Study: Polysomnography HPI additional information: ZANDRA ERNANDEZ was diagnosed to have mild, AHI 11.1, obstructive sleep apnea- hypopnea syndrome and returned today for CPAP therapy first compliance after updating device follow-up. Sleep Study - Results Type of Sleep Study: Polysomnography Prior sleep studies: Yes Year and Where: 2017 - [facility] CPAP Compliance Data - Data Reviewed with Patient Average duration of nightly device use: 7 HRS 19 MINS Compliance rate %: 70 (09/23/23-10/22/23; days used) Current pressure setting (cmH2O): 6-10 Average residual AHI: 1.4 Central apnea: 0.2 Obstructive apnea: 0.5 Average large leak: 10.6 L/min Subjective Missed days of use due to: reports: family emergency, travel Patient concerns: denies: aerophagia, mask discomfort, air blowing in eyes, mask leak noise, condensation in mask/hose, nasal congestion, dry mouth, nose, throat, epistaxis Observed to snore while using device: No Current pressure setting perceived as: comfortable On therapy, patient: reports: sleeping better, awakening more refreshed, being more awake and alert during the day, more rested overall. denies: drowsiness wh ile driving Initial [place] Sleepiness Scale score: 14 (in 2018) Current [place] Sleepiness Scale score: 6 (12/29/23) Allergies and Home Medications Known drug allergies: No Drug allergies reviewed: Yes Home medication list reviewed: Yes (no changes) Allergy and home medication list: Allergies No Known Drug Allergies Allergy (Verified 12/29/23 09:02) Review of Systems Review of systems same as previous: Yes (NO CHANGE) Physical Exam Vital signs obtained and entered by: RYAN Brewer MA Blood Pressure: 124/77 (RIGHT ARM) Cuff size: long Heart Rate: 98 O2 Saturation: 97 Height: 5 ft 10 in Weight: 236 lb 6.4 oz Body Mass Index: 33.9 BMI Classification: Obese Impression and Plan 1. Obstructive Sleep Apnea-Hypopnea Syndrome, mild, with good treatment compliance and good apnea control. On CPAP therapy, the patient has better sleep quality and is more rested overall. She likes her new device and denies any problems or issues with using her machine. She has significant improvement of her sleep apnea and is satisfied with current CPAP therapy. Patient's apnea severity and rationale for treatment to reduce apnea, improve sleep quality and reduce cardiovascular and cerebrovascular events was reviewed. I also reviewed the benefit of consistent device use of CPAP for depression/anxiety. 2. Obesity, unspecified. Currently patients BMI is 33.9. Obesity increases the risk of apnea, CPAP pressure requirements and overall health risks especially cardiovascular and diabetes. Thus patient is advised to lose weight. * Continue auto CPAP pressure at 6-10 cmH2O * Notify me if snoring with mask or feeling that the pressure is too much or too little * Attempt to lose weight * Call this office if any problems using CPAP * Return for follow up in 12 months, or sooner if concerns arise Counseling Topics: Spare mask, Weight loss health impact Follow up with Sleep Care in: 1 year Visit Type: In Office Time Spent with Patient (minutes): 14 Provider Statement: I spent 100% of the Face to Face Visit with the patient with greater than 50% spent counseling the patient and coordination of care.
[2023-12-29 09:37] VITALS: BP 124/77; O2SAT 97
== END 2023-12-29 08:59 | disposition home or self-care (01) ==
LOC: SC 08:58
PROVIDERS: ATTEND Nurse Practitioner Family
DX: G47.33 Obstructive sleep apnea (adult) (pediatric) (principal); E66.9 Obesity, unspecified; Z68.33 Body mass index [BMI] 33.0-33.9, adult
CPT/HCPCS: 99212; G0463